=== PATIENT | female | born 1985 | race African-American/Black ===

== ENCOUNTER 2025-02-01 09:44 | Emergency (ER) | payer MEDICAID ==
[~2025-02-01] VITALS: Ht 180.3 cm; Wt 95.0 kg
[2025-02-01 09:51] VITALS: O2SAT 99
[2025-02-01] MEDS: ACETAMINOPHEN 325MG TABLET PO ONE (10:40)
[2025-02-01] MEDS ORDERED: ACET-2708 MT (11:27)
[2025-02-01 11:54] VITALS: BP 123/90; PULSE 83; RESP 14; TEMP 36.8; O2SAT 98
== END 2025-02-01 11:55 | disposition home or self-care (01) ==
LOC: ER 09:44
DX: M54.9 Dorsalgia, unspecified (principal); J45.909 Unspecified asthma, uncomplicated; M53.3 Sacrococcygeal disorders, not elsewhere classified; Z79.899 Other long term (current) drug therapy
CPT/HCPCS: 72220; 81025; 99283